=== PATIENT | female | born 1995 | race Caucasian/White ===

== ENCOUNTER → 2021-04-01 08:13 | Outpatient (CLI) | payer OTHER, SELFPAY ==
--- NOTE | ~2021-04-01 | US_ITS ---
EXAMINATION: US right upper quadrant EXAM DATE: 04/01/2021 08:42 INDICATION: Right upper quadrant pain TECHNIQUE: Multiple grayscale and Doppler images of the abdomen right upper quadrant were obtained (b y a technologist who performed the scan) and subsequently reviewed. There is no prior study for regino tony. FINDINGS: The pancreatic head and body are normal in appearance. The pancreatic tail is not visualized. The l iver has normal echogenicity and contour. There are no focal liver lesions identified. There is no evidence of intrahepatic biliary duct dilation. Portal venous flow was seen in the hepatopedal, nor mal direction and has normal Doppler waveform. No right-sided hydronephrosis. Common bile duct measures 5 mm, which is normal. The gallbladder wall is normal in thickness, with ex pected amount of distention. No sonographic evidence of pericholecystic fluid. There is no cholelit hiases. Technologist performing exam reports patient did not demonstrate sonographic Harrison's sign. Please note that this sign is less reliable in patients who have received pain medication. IMPRESSION: 1. Unremarkable abdominal ultrasound exam. Reviewed, dictated and finalized at location [facility] [employer]
== END ==
PROVIDERS: PCP Nurse Practitioner Family; Visit Provider Nurse Practitioner Family
DX: R10.11 Right upper quadrant pain (principal)
CPT/HCPCS: 76705

== ENCOUNTER 2023-08-20 17:45 | Emergency (ER) | payer OTHER, SELFPAY ==
[2023-08-20 17:49] VITALS: BP 125/91; PULSE 120; RESP 18; TEMP 36.9; O2SAT 99
--- NOTE | 2023-08-20 17:53 | ED.GENADULT ---
HPI - General Adult General Chief complaint: Nausea/Vomiting/Diarrhea <Karely Botello July, POLYSOM TECH - Last Filed: 08/20/23 17:56> Stated complaint: diarrhea, vomiting <Karely Botello July, POLYSOM TECH - Last Filed: 08/20/23 17:56> Time Seen by Provider: 08/20/23 17:53 <Karely Botello July, POLYSOM TECH - Last Filed: 08/20/23 17:56> Focused HPI: Anna Bautista is a 27 y/o female who presents via EMS with complaints of waking up today and started to have diarrhea. She states that once she had diarrhea about 3-4 times she started to have nausea/vomiting . She states that whenever she gets sick she hyperventilates and she couldn't calm down so EMS was called She tried breathing into a brown paper bag but did not feel any better Reports some mild lower abdominal cramping and some extremity cramping from the hyperventilation GENERAL: in no acute distress. HEAD: Normocephalic, atraumatic. CHEST: Clear to auscultation. ?No respiratory distress. HEART: Regular rate and rhythm.? NEURO: ?Alert and oriented x3. Patient screened in triage and initial orders placed.? ?Additional care and disposition to be based upon?diagnostic testing and treatment. <Karely Botello July, POLYSOM TECH - Last Filed: 08/20/23 17:56> Focused HPI: Anna Bautista is a 27 y/o female who presents via EMS with complaints of waking up today and started to have diarrhea. She states that once she had diarrhea about 3-4 times she started to have nausea/vomiting . She states that whenever she gets sick she hyperventilates and she couldn't calm down so EMS was called. She tried breathing into a brown paper bag but did not feel any better. Reports some mild lower abdominal cramping and some extremity cramping from the hyperventilation. GENERAL: in no acute distress. HEAD: Normocephalic, atraumatic. CHEST: Clear to auscultation. ?No respiratory distress. HEART: Regular rate and rhythm.? NEURO: ?Alert and oriented x3. Patient screened in triage and initial orders placed.? ?Additional care and disposition to be based upon?diagnostic testing and treatment. <Marian Irizarry MD - Last Filed: 08/20/23 20:19> Related Data Home medications: Home Medications Medication Instructions Recorded Confirmed ascorbic acid (vitamin C) 500 mg mg PO PRN 04/10/22 04/23/23 capsule <Karely Plaza APRN - Last Filed: 08/20/23 17:56> Allergies/adverse reactions: Allergies Allergy/AdvReac Type Severity Reaction Status Date / Time No Known Allergies Allergy Verified 08/20/23 17:46 <Karely Plaza POLYSOM TECH - Last Filed: 08/20/23 17:56> Review of Systems Review of Systems: All systems are reviewed and are negative unless stated otherwise in the HPI. <Marian Irizarry MD - Last Filed: 08/20/23 20:19> PMFSH Past Medical History Medical History: Medical History Encounter for surveillance of contraceptive pills Encounter for well woman exam Hypothyroid Other specified irregular menstruation <Karely Plaza POLYSOM TECH - Last Filed: 08/20/23 17:56> Surgical History Surgical History: Surgical History History of wisdom tooth extraction <Karely Plaza POLYSOM TECH - Last Filed: 08/20/23 17:56> Family History Family History: Family History Grandparent Family history of lung cancer Family history of type 2 diabetes mellitus <Karely Plaza POLYSOM TECH - Last Filed: 08/20/23 17:56> Social History Social History: Social History Smoking status: Never smoker Alcohol intake: never Substance use: never Substance use type: does not use Lack of Transportation: No Lack of Food: Never True Current Housing: I Have Housing Concerned About Future Housing: No Difficulty Paying Gas/Electric Bills: No Difficulty Paying for Meds: No Currently Unemployed
[2023-08-20 18:05] LABS: Hematocrit 45.7 % (37.0-47.0); Hemoglobin 16.3 g/dL (12.0-15.0); Mean Corpuscular HGB Conc 35.7 g/dl (32-36); Mean Corpuscular Hemoglobin 31.7 pg (26-34); Mean Corpuscular Volume 88.9 fl (80-100); Mean Platelet Volume 9.7 fl (7.4-10.4); Platelet Count Result 239 k/mm3 (150-375); Red Blood Count 5.14 M/mm3 (4.2-5.4)
[2023-08-20 18:14] LABS: Alanine Aminotransferase 23 U/L (6-35); Alkaline Phosphatase 62 U/L (38-126); Anion Gap 13 mmol/L (4-12); Aspartate Amino Transferase 23 U/L (14-36); Bilirubin,Total 1.5 mg/dL (0.2-1.3); Blood Urea Nitrogen 16 mg/dL (7-17); Calcium 9.4 mg/dL (8.4-10.2); Carbon Dioxide 16 mmol/L (22-30); Chloride 109 mmol/L (98-107); Estimated CRCL calculation 65 ml/min; Estimated Glomerular Filt Rate > 60; Glucose 111 mg/dL (65-110); Lipase 54 U/L (23-300); Potassium 3.6 mmol/L (3.4-5.0); Sodium 138 mmol/L (137-145)
[2023-08-20] MEDS: SODIUM CHLORIDE 0.9% IV 1,000 ML 999 ML IV CONT ×2 (18:24→19:56)
[2023-08-20] MEDS: KETOROLAC 30 MG/ML VIAL (*BKC) IV PUSH (18:25)
[2023-08-20] MEDS: ONDANSETRON INJ 4 MG/2 ML VIAL IV PUSH (18:25)
[2023-08-20 18:33] LABS: Band Neutrophils Percent 9 % (0-6); Eosinophils Percent Manual 1 % (0-4); Monocytes Percent Manual 3 % (3-9); Neutrophils Percent Manual 85 % (46-73); Platelet Estimate Adequate (Adequate); Schistocytes None Seen; Total Cells Counted 100
[2023-08-20 19:34] LABS: Appearance Urine Clear (Clear); Bilirubin Urine Negative (Negative); Blood Urine Negative (Negative); Color Urine Yellow (Yellow); Glucose Urine UA Negative (Negative); Ketones Urine 3+ mg/dL (Negative); Leukocyte Esterase Ur Negative LEU/UL (Negative); Nitrate Urine Negative (Negative); Protein Urine Negative (Negative); Urobilinogen Urine 0.2 mg/dL (<2.0); pH Urine 5.5 (5.0-9.0)
[2023-08-20 19:42] LABS: Add Urine Microscopic? NO
[2023-08-20 20:11] LABS: Influenza A QL RT-PCR Negative (Negative); Influenza B QL RT-PCR Negative (Negative); RSV RNA, RT-PCR Negative (Negative); SARS-CoV-2 RNA PCR Negative (Negative)
== END 2023-08-20 20:47 | disposition home or self-care (01) ==
PROVIDERS: Nurse Practitioner Family; Emergency Provider Emergency Medicine; PCP Physician Assistant Medical
DX: R19.7 Diarrhea, unspecified (principal); R11.2 Nausea with vomiting, unspecified; R06.4 Hyperventilation; Z20.822 Contact with and (suspected) exposure to COVID-19; E03.9 Hypothyroidism, unspecified
CPT/HCPCS: 36415; 80053; 81003; 81025; 83690; 85025; 87637; 96361; 96374; 96375; 99284; J1885; J2405; J7030

== ENCOUNTER 2025-03-29 18:09 | Emergency (ER) | payer OTHER, SELFPAY ==
[2025-03-29 18:21] VITALS: BP 118/78; PULSE 99; RESP 18; TEMP 36.8; O2SAT 98
--- NOTE | 2025-03-29 18:29 | ED_ITS ---
HPI - URI/Sore Throat General Chief Complaint: Upper Respiratory Infection Stated Complaint: Flu Like History of Present Illness HPI Narrative: CHIEF COMPLAINT: Fever and respiratory symptoms PATIENT SUMMARY: The patient presented with fever, headache, chills, body aches, sore throat, runny nose, and cough. HISTORY OF PRESENT ILLNESS: The patient reported the onset of fever, headache, chills, body aches, and sore throat on night, with symptoms persisting throughout Sunday. The patient experienced a temporary improvement on Sunday, feeling notably better, albeit with some fatigue. However, symptoms returned on Sunday afternoon, accompanied by a runny nose and cough. The patient used Tylenol at 5:30 PM for symptom relief and reported a maximum temperature of 100.6?F. The patient also experienced chills and sweats, which were not alleviated by a hot shower. The p atient was exposed to a sick brother with similar symptoms who was positive for fluA. Despite the exposure, the patient's children have not shown symptoms. The patient is and expressed concerns about medication safety and effectiveness. REVIEW OF SYSTEMS: Constitutional: Positive for fever, chills, and body aches. Negative for significant fatigue or weakness. Respiratory: Positive for sore throat, runny nose, and cough. Negative for shortness of breath. General: Positive for headache. Negative for gastrointestinal symptoms such as nausea or vomiting. PAST MEDICAL HISTORY: Not available. PAST SURGICAL HISTORY: Not available. MEDICATIONS: Tylenol as needed. ALLERGIES: Not available. FAMILY HISTORY: Not available. SOCIAL HISTORY: - : Yes VITALS AND PHYSICAL EXAM: Not available. Related Data Home Medications ?Medication ?Instructions ?Recorded ?Confirmed ?Last Taken ?Type ascorbic acid (vitamin C) 500 mg mg PO PRN 04/10/22 Unknown History capsule Allergies Allergy/AdvReac Type Severity Reaction Status Date / Time No Known Allergies Allergy Verified 03/29/25 18:11 Review of Systems Review of Systems: All systems reviewed & are unremarkable except as noted in HPI and below Eyes: Eyes: Reports as per HPI ENT: Reports as per HPI Cardiovascular: Cardiovascular: Reports as per HPI Respiratory: Respiratory: Reports as per HPI Genitourinary: Genitourinary: Reports as per HPI Musculoskeletal: Musculoskeletal: Reports as per HPI Integumentary/Breasts: Skin/Breast: Reports as per HPI Neurologic: Reports as per HPI Psychiatric: Psychiatric: Reports as per HPI Endocrine: Endocrine: Reports as per HPI Hematologic/Lymphatic: Hematologic/Lymphatic: Reports as per HPI Allergic/Immunologic: Allergic/Immunologic: Reports as per HPI [facility] Past Medical History Medical History (Updated 03/29/25 @ 18:47 by Danii Francois APRN) Encounter for surveillance of contraceptive pills Encounter for well woman exam Gestational diabetes resolved August 2024 Hypothyroid Other specified irregular menstruation Surgical History Surgical History History of wisdom tooth extraction Family History Family History Grandparent Family history of lung cancer Family history of type 2 diabetes mellitus Social History Social History (Updated 02/02/25 @ 08:36 by Sharla Almaguer [facility]) Smoking packs per day: 0 Smoking cigarettes per day: 0.0 Years smoked: 0 Smoking pack-years: 0.00 Smoking status: Never smoker Alcohol intake: never Substance use: never Substance use type: does not use Lack of Transportation: No Lack of Food: Never True Current Housing: I Have Housing Concerned About Future Housing: No Difficulty Paying Gas/Electric Bills: No Difficulty Paying for Meds: No Currently Unemployed: No Education: Bachelor's Degree Difficulty w/ Childcare or Family Care: No Living arrangements: with family Occupation/Education: occupation Gender identity (if verbalized by the patient): Female Exam Const: General: comfortable, no acute distress, well developed and ill appearing acutely Orientation/consciousness: patient oriented x3 HENMT: Head: normal to inspection Other: posterior oropharynx with erythema Eyes: General: appearance normal, both eyes and all related structures Resp: Effort & Inspection: normal respiratory effort and able to speak in complete sentences Auscultation: clear to auscultation bilaterally Cardio: Rate: regular rate Rhythm: regular rhythm Heart sounds: S1 normal heart sound present and S2 normal heart sound present Skin: General skin exam: normal color Neuro: General: patient oriented x3 Cognition (Neuro): normal cognition Speech: normal speech Psych: Mental Status: mental status grossly normal Course Course Level of Care: Express Care Visit Vital Signs Vital signs: Vital Signs Temperature 98.2 F 03/29/25 18:21 Pulse Rate 99 03/29/25 18:21 Respiratory Rate 18 03/29/25 18:21 Blood Pressure 118/78 03/29/25 18:21 Pulse Oximetry 98 03/29/25 18:21 Oxygen Delivery Room Air 03/29/25 18:21 Temperature 98.2 F 03/29/25 18:21 Pulse Rate 99 03/29/25 18:21 Respiratory Rate 18 03/29/25 18:21 Blood Pressure 118/78 03/29/25 18:21 Pulse Oximetry 98 03/29/25 18:21 Oxygen Delivery Room Air 03/29/25 18:21 MDM MDM Narrative Medical decision making narrative: DIAGNOSTIC STUDIES: fluc covid strep ordered. Positive for influenza A. Negative for strep and COVID-19. ASSESSMENT: The differential diagnosis is listed in order of most to least likely: 1. Influenza A: The patient tested positive for influenza A, which aligns with the symptoms of fever, body aches, sore throat, and respiratory symptoms. The sudden onset and exposure to a sick brother support this diagnosis. 2. Viral Upper Respiratory Infection: Although less likely due to the positive influenza test, a viral upper respiratory infection could explain the respiratory symptoms. However, the presence of influenza A is more consistent with the patient's presentation. 3. Bacterial Pharyngitis: Unlikely due to the negative strep test and the nature of symptom progression, which is more consistent with a viral etiology. PLAN: Treatment: - Prescribed Tamiflu for influenza A, to be started today to decrease symptoms and viral load. - Advised continued use of Tylenol or ibuprofen for fever and pain management. - Recommended Claritin for runny nose or allergies, and dextromethorphan for cough. Patient Education: - Discussed the safety of Tamiflu, Tylenol, ibuprofen, and other nexs-ojq-sjbn ter medications during . - Advised on the use of honey as a natural cough remedy and the benefits of a cool or warm mist humidifier for congestion. - Cautioned to avoid medications containing alcohol or decongestants to prevent a decrease in milk supply. Follow-Up: - Advised to contact the design center consultant for potential preventative measures for her children. - Instructed to monitor symptoms and seek further medical attention if conditions worsen or new symptoms develop. Disposition: - Prescription sent to the [facility] pharmacy. MEDICAL DECISION MAKING: The history of present illness indicated exposure to a contagious individual and symptom onset consistent with influenza. Positive diagnostic results for influenza A confirmed the primary diagnosis. Testing for strep and COVID-19 was negative, supporting the influenza diagnosis. The plan of care included prescribing Tamiflu, providing symptomatic relief through wjzd-[id number] medications, and ensuring the safety of treatments during . The patient was advised on hygiene practices to prevent transmission to her children and instructed to follow up with the design center consultant for further advice. Differential Diagnosis Differential Diagnosis: Differentials include but not limited to COVID, flu, or URI, viral pharyngitis, strep. Lab Data [facility] Lab Attestation statement: I personally reviewed the patient's lab results. Labs: Lab Results 03/29/25 03/29/25 Range/Units 18:35 18:39 POC Influenza A Ag Positive Positive (Negative) POC Influenza B Ag Negative Negative (Negative) POC SARS CoV-2 Ag Negative Negative (Negative) POC Grp A Strep Screen Negative Negative (Negative) Discharge Plan Discharge Clinical Impression: Influenza A Patient Disposition: Home Condition: Stable Instructions: Antibiotic Form, Influenza (DC) Additional Instructions: Tylenol or ibuprofen for pain or fever. Your so Claritin is safe for right knee nose are allergies. Dextromethorphan is safe for a cough. Mucinex there is no research for it but it is considered safe in an spvx-[id number]-[id number] dosage Ng. Honey is a good natural alternative for a cough. Cool-mist humidifier or warm mist humidifier for congestion can also help. Avoid anything with alcohol or decongestants as the decongestants could decrease her milk supply. Patient Language: Estonian Prescriptions: New oseltamivir [Tamiflu] 75 mg capsule 75 mg PO Q12H 5 Days Qty: 10 0RF No Action ascorbic acid (vitamin C) 500 mg capsule PO PRN levothyroxine 125 mcg tablet 125 mcg PO DAILY Qty: 90 3RF norethindrone (contraceptive) [Pat] 0.35 mg tablet 0.35 mg PO DAILY Qty: 84 1RF Follow-up/Referrals: Gayathri Vallejo PA-C [Primary Care Provider, Family Practice] Time of Disposition: 18:46 Quality NIHSS Nursing Documentation ED NIHSS nursing documentation: reviewed/agree
[2025-03-29 18:37] LABS: EDCOVIDSCREEN Negative (Negative); EDINFLUASCREEN Positive (Negative); EDINFLUBSCREEN Negative (Negative); EDSTREPNEGPOS1 Negative (Negative)
[2025-03-29 18:41] LABS: EDCOVIDSCREEN Negative (Negative); EDINFLUASCREEN Positive (Negative); EDINFLUBSCREEN Negative (Negative); EDSTREPNEGPOS1 Negative (Negative)
== END 2025-03-29 18:48 | disposition home or self-care (01) ==
PROVIDERS: Emergency Provider Nurse Practitioner Family; PCP Physician Assistant Medical
DX: J10.1 Influenza due to other identified influenza virus with other respiratory manifestations (principal); Z20.822 Contact with and (suspected) exposure to COVID-19; E03.9 Hypothyroidism, unspecified
CPT/HCPCS: 87426; 87804; 87880; 99213; G0463